=== PATIENT | male | born 1980 | race Caucasian/White ===

== ENCOUNTER 2022-10-28 07:24 | Outpatient (OUT) | payer OTHER, SELFPAY ==
[2022-10-28 09:09] LABS: Anion Gap 10.9; BUN Creatinine Ratio 9.9; Carbon Dioxide 29.3 mmol/L (21.0-32.0); Chloride 102 mmol/L (98-107); Estimated GFR (African America >60 (>=60); Estimated GFR (Non-African Ame 54 (>=60); Glucose 109 mg/dL (74-106); Potassium 4.2 mmol/L (3.5-5.1); Sodium 138 mmol/L (136-145)
[2022-10-28 09:28] LABS: Prostate Specific Antigen Scrn 1.86 ng/mL (<=4.00)
[2022-10-28 09:48] LABS: Estimated Average Glucose 108 mg/dL; Glycohemoglobin A1C 5.4 % (4.5-6.2)
[2022-10-29 05:12] LABS: Testosterone 195 ng/dL (264-916)
== END 2022-10-28 07:25 | disposition home or self-care (01) ==
PROVIDERS: PCP Internal Medicine; Visit Provider Internal Medicine
DX: E23.0 Hypopituitarism (principal); E22.1 Hyperprolactinemia
CPT/HCPCS: 36415; 80048; 83036; 84403; G0103

== ENCOUNTER 2023-03-31 07:56 | Outpatient (OUT) | payer OTHER, SELFPAY ==
[2023-03-31 08:18] LABS: Hemoglobin 17.9 g/dL (14.0-18.0)
[2023-03-31 08:56] LABS: Anion Gap 13.4; BUN Creatinine Ratio 11.7; Calcium 8.9 mg/dL (8.5-10.1); Carbon Dioxide 26.7 mmol/L (21.0-32.0); Chloride 102 mmol/L (98-107); Estimated GFR (African America >60 (>=60); Estimated GFR (Non-African Ame 53 (>=60); Glucose 95 mg/dL (74-106); Potassium 4.1 mmol/L (3.5-5.1); Sodium 138 mmol/L (136-145)
[2023-03-31 09:33] LABS: Prostate Specific Antigen Dx 1.38 ng/mL (<=4.00)
[2023-04-01 09:11] LABS: Prolactin 24.4 ng/mL (4.0-15.2); Testosterone 548 ng/dL (264-916)
== END 2023-03-31 07:57 | disposition home or self-care (01) ==
LOC: LAB 07:58
PROVIDERS: PCP Internal Medicine; Visit Provider Internal Medicine
DX: E23.0 Hypopituitarism (principal); E22.1 Hyperprolactinemia; R77.8 Other specified abnormalities of plasma proteins
CPT/HCPCS: 36415; 80048; 82728; 84146; 84153; 84403; 85018